=== PATIENT | female | born 1940 | race Caucasian/White ===

== ENCOUNTER 2024-03-15 17:43 | Emergency (ER) | payer MEDICARE, BC ==
[~2024-03-15] VITALS: Ht 165.1 cm; Wt 70.3 kg
--- NOTE | 2024-03-15 18:02 | NUR ---
ABDOMINAL DISCOMFORT AND NAUSEA X 1 WEEK
[2024-03-15 18:13] LABS: BASOPHILS % (AUTO) 0.8 % (0.0-2.0); EOSINOPHILS # (AUTO) 0.2 K/uL (0.0-0.7); EOSINOPHILS % (AUTO) 4.4 % (0.0-6.0); HEMATOCRIT 39 % (33-45); LYMPHOCYTES # (AUTO) 1.4 K/uL (0.8-4.8); LYMPHOCYTES % (AUTO) 30.3 % (20.0-44.0); MEAN CORPUSCULAR HEMOGLOBIN 30 PG (26.0-33.0); MEAN CORPUSCULAR HGB CONC 33 g/dl (31.0-36.0); MEAN CORPUSCULAR VOLUME 91 fL (82-100); MONOCYTES # (AUTO) 0.4 K/uL (0.1-1.30); MONOCYTES % (AUTO) 8.2 % (2.0-12.0); NEUTROPHILS # (AUTO) 2.6 K/uL (1.8-8.9); NEUTROPHILS % (AUTO) 56.3 % (43.0-81.0); PLATELET COUNT (AUTO) 215 K/uL (150-450); RED BLOOD CELL COUNT(AUTO) 4.26 MIL/uL (4.0-5.2); RED CELL DISTRIBUTION WIDTH 14.2 % (11.5-15.0); WHITE BLOOD COUNT (AUTO) 4.6 K/uL (4.3-11.0)
[2024-03-15 18:19] LABS: CALCIUM, SERUM 10.1 mg/dL (8.5-10.1); CARBON DIOXIDE 28 mmol/L (21-32); CHLORIDE 101 mmol/L (98-107); CREATININE 0.7 mg/dL (0.6-1.3); GLUCOSE 92 mg/dL (74-106); POTASSIUM 3.8 mmol/L (3.5-5.1); SODIUM SERUM 138 mmol/L (136-145); UREA NITROGEN, BLOOD 23 mg/dL (7-18)
[2024-03-15 18:24] LABS: ALANINE AMINOTRANSFERASE 23 U/L (12-78); ALBUMIN 3.7 g/dL (3.4-5.0); ALKALINE PHOSPHATASE 65 U/L (46-116); ASPARTATE AMINOTRANSFERASE 19 U/L (15-37); BILIRUBIN,DIRECT 0.1 mg/dL (0.0-0.2); BILIRUBIN,TOTAL 0.3 mg/dL (0.2-1.0); LIPASE 78 U/L (16-77); TOTAL PROTEIN, SERUM 7.7 g/dL (6.4-8.2)
[2024-03-15] MEDS ORDERED: IOHEXOL-300 100 ML VIAL IV ONE (18:52)
[2024-03-15] MEDS ORDERED: IV NS 0.9% 250 ML IV ONE (18:52)
--- NOTE | 2024-03-15 19:53 | NUR ---
Urine specimen collected sent to lab
--- NOTE | 2024-03-15 20:01 | NUR ---
Brother (rachel left, provided contact number [phone]
[2024-03-15 20:38] VITALS: BP 165/79; TEMP 98; O2SAT 99
--- NOTE | 2024-03-15 20:38 | NUR ---
Patient discharged to home in stable condition. Written and verbal after care instructions given. Patient verbalizes understanding of instruction. IV removed. Catheter intact and site benign. Pressure and 4x4 applied to site. No bleeding noted.
[2024-03-15 21:00] LABS: APPEARANCE,URINE CLEAR (CLEAR); BILIRUBIN,URINE NEGATIVE (NEGATIVE); BLOOD, URINE NEGATIVE Ery/uL (NEGATIVE); COLOR,URINE YELLOW (YELLOW); KETONES,URINE NEGATIVE (NEGATIVE); LEUKOCYTE ESTERASE ,URINE NEGATIVE (NEGATIVE); NITRITE, URINE NEGATIVE (NEGATIVE); PROTEIN,URINE NEGATIVE (NEGATIVE); UGLUCOSE NEGATIVE (NEGATIVE); UROBILINOGEN,URINE 0.2 EU/dL (0.2)
== END 2024-03-15 20:38 | disposition home or self-care (01) ==
LOC: ER 17:43
DX: K59.00 Constipation, unspecified (principal); R10.9 Unspecified abdominal pain; R11.0 Nausea; Z87.09 Personal history of other diseases of the respiratory system; Z88.2 Allergy status to sulfonamides; Z60.2 Problems related to living alone
CPT/HCPCS: 99285; 74177; 85025; 80048; 83690; 80076; 81003; 36415; J7050; Q9967; 74160-TC

== ENCOUNTER 2024-08-18 12:31 | Emergency (ER) | payer MEDICARE, BC ==
[~2024-08-18] VITALS: Ht 165.1 cm; Wt 59.0 kg
[2024-08-18] MEDS ORDERED: LORAZEPAM 0.5 MG TABLET ONE (13:20)
[2024-08-18] MEDS: LORAZEPAM 1 MG TABLET PO ONE (13:22)
[2024-08-18 13:44] LABS: BASOPHILS % (AUTO) 0.8 % (0.0-2.0); EOSINOPHILS # (AUTO) 0.1 K/uL (0.0-0.7); HEMATOCRIT 36 % (33-45); HEMOGLOBIN 12.9 g/dL (11.5-14.8); LYMPHOCYTES # (AUTO) 1.1 K/uL (0.8-4.8); LYMPHOCYTES % (AUTO) 23.3 % (20.0-44.0); MEAN CORPUSCULAR HEMOGLOBIN 33 PG (26.0-33.0); MEAN CORPUSCULAR HGB CONC 36 g/dl (31.0-36.0); MEAN CORPUSCULAR VOLUME 91 fL (82-100); MONOCYTES # (AUTO) 0.5 K/uL (0.1-1.30); MONOCYTES % (AUTO) 10.1 % (2.0-12.0); NEUTROPHILS # (AUTO) 3.1 K/uL (1.8-8.9); NEUTROPHILS % (AUTO) 63.8 % (43.0-81.0); PLATELET COUNT (AUTO) 198 K/uL (150-450); WHITE BLOOD COUNT (AUTO) 4.8 K/uL (4.3-11.0)
[2024-08-18 13:53] LABS: CALCIUM, SERUM 9.1 mg/dL (8.5-10.1); CARBON DIOXIDE 30 mmol/L (21-32); CHLORIDE 102 mmol/L (98-107); CREATININE 1.1 mg/dL (0.6-1.3); GLUCOSE 99 mg/dL (74-106); POTASSIUM 3.8 mmol/L (3.5-5.1); SODIUM SERUM 137 mmol/L (136-145); UREA NITROGEN, BLOOD 27 mg/dL (7-18)
[2024-08-18 14:56] VITALS: BP 176/78; TEMP 98.1; O2SAT 99
== END 2024-08-18 14:57 | disposition home or self-care (01) ==
LOC: ER 12:36
DX: R42 Dizziness and giddiness (principal); R53.83 Other fatigue; R03.0 Elevated blood-pressure reading, without diagnosis of hypertension; F41.1 Generalized anxiety disorder; J84.10 Pulmonary fibrosis, unspecified; Z88.2 Allergy status to sulfonamides
CPT/HCPCS: 36415; 71045-TC; 80048-TC; 84484-TC; 85025-TC

== ENCOUNTER 2024-10-23 10:47 | Inpatient (IN) | payer MEDICARE, BC ==
[~2024-10-23] VITALS: Ht 165.1 cm; Wt 58.5 kg
[2024-10-23 11:46] LABS: BASOPHILS % (AUTO) 0.3 % (0.0-2.0); EOSINOPHILS % (AUTO) 0.1 % (0.0-6.0); HEMATOCRIT 40 % (33-45); HEMOGLOBIN 13.9 g/dL (11.5-14.8); LYMPHOCYTES # (AUTO) 0.4 K/uL (0.8-4.8); MEAN CORPUSCULAR HEMOGLOBIN 31 PG (26.0-33.0); MEAN CORPUSCULAR HGB CONC 35 g/dl (31.0-36.0); MEAN CORPUSCULAR VOLUME 87 fL (82-100); MONOCYTES # (AUTO) 0.9 K/uL (0.1-1.30); MONOCYTES % (AUTO) 22.3 % (2.0-12.0); NEUTROPHILS # (AUTO) 2.9 K/uL (1.8-8.9); NEUTROPHILS % (AUTO) 68.3 % (43.0-81.0); PLATELET COUNT (AUTO) 217 K/uL (150-450); RED BLOOD CELL COUNT(AUTO) 4.55 MIL/uL (4.0-5.2); WHITE BLOOD COUNT (AUTO) 4.2 K/uL (4.3-11.0)
[2024-10-23 11:50] LABS: CALCIUM, SERUM 9.8 mg/dL (8.5-10.1); CARBON DIOXIDE 27 mmol/L (21-32); CHLORIDE 85 mmol/L (98-107); CREATININE 1.2 mg/dL (0.6-1.3); GLUCOSE 104 mg/dL (74-106); SODIUM SERUM 124 mmol/L (136-145); UREA NITROGEN, BLOOD 20 mg/dL (7-18)
[2024-10-23 11:57] LABS: ALANINE AMINOTRANSFERASE 126 U/L (12-78); ALBUMIN 3.7 g/dL (3.4-5.0); ALKALINE PHOSPHATASE 65 U/L (46-116); ASPARTATE AMINOTRANSFERASE 300 U/L (15-37); BILIRUBIN,DIRECT 0.2 mg/dL (0.0-0.2); BILIRUBIN,TOTAL 0.7 mg/dL (0.2-1.0); TOTAL PROTEIN, SERUM 8.3 g/dL (6.4-8.2)
[2024-10-23] MEDS ORDERED: ASPIRIN 325 MG TABLET ONE (12:24)
[2024-10-23 12:36] LABS: LACTIC ACID 2.2 mmol/L (0.4-2.0)
[2024-10-23] MEDS: POTASSIUM CL. PREMIX PERIPHER. 50 ML IV SCH (12:39)
[2024-10-23] MEDS: ASPIRIN 325 MG TABLET PO ONE (12:39)
[2024-10-23] MEDS: POTASSIUM CHLORIDE 20 MEQ POWDER PACKET PO ONE (12:40)
[2024-10-23 12:41] LABS: INR 1.14 (0.91-1.10); PARTIAL THROMBOPLASTIN TIME 40.2 SEC (24.3-34.3)
[2024-10-23 13:03] LABS: APPEARANCE,URINE CLEAR (CLEAR); BILIRUBIN,URINE NEGATIVE (NEGATIVE); BLOOD, URINE 3+ Ery/uL (NEGATIVE); COLOR,URINE YELLOW (YELLOW); KETONES,URINE NEGATIVE (NEGATIVE); LEUKOCYTE ESTERASE ,URINE NEGATIVE (NEGATIVE); NITRITE, URINE NEGATIVE (NEGATIVE); PROTEIN,URINE 2+ mg/dl (NEGATIVE); UGLUCOSE NEGATIVE (NEGATIVE); UROBILINOGEN,URINE 0.2 EU/dL (0.2)
[2024-10-23] MEDS ORDERED: LOSA50TA39 PO (13:14)
[2024-10-23 13:18] LABS: ADD URINE CULTURE YES; WBC,URINE 0-2 /HPF (0-3)
[2024-10-23 13:19] LABS: BACTERIA,URINE 3+ /HPF (None Seen)
[2024-10-23 13:36] LABS: ANISOCYTOSIS 1+; LYMPHOCYTES % (MANUAL) 13 % (16-48); MONOCYTES % (MANUAL) 18 % (0-11.0); NEUTROPHILS % (MANUAL) 69 (42-76); PLATELET ESTIMATE ADEQUATE
[2024-10-23] MEDS ORDERED: POTASSIUM CL. PREMIX PERIPHER. 50 ML ONE (14:42)
[2024-10-23] MEDS ORDERED: ACETAMINOPHEN 325 MG TABLET PO PRN (15:00)
[2024-10-23] MEDS ORDERED: MAGNESIUM HYDROXIDE 30 ML UDC PO PRN (15:00)
[2024-10-23] MEDS ORDERED: ZOLPIDEM TARTRATE 5 MG TABLET PO PRN (15:00)
[2024-10-23] MEDS ORDERED: ONDANSETRON HCL/PF 4 MG/2 ML VIAL IVP PRN (15:00)
[2024-10-23] MEDS ORDERED: MAG HYDROX/AL HYDROX/SIMETH 30 ML UDC PO PRN (15:00)
[2024-10-23] MEDS ORDERED: Z GUARD REMEDY 4 OZ OINT TP PRN (15:00)
[2024-10-23] MEDS: CEFTRIAXONE 1 G in IV D5W 50 ML IV SCH (16:16)
[2024-10-23] MEDS: ENOXAPARIN SODIUM 30 MG/0.3 ML DISP.SYRIN SQ SCH (16:18)
[2024-10-23] MEDS: IV 1/2NS 1000 ML 1,000 ML IV PRN (18:05)
[2024-10-23 20:00] VITALS: BP 135/58; TEMP 98.4; O2SAT 94
[2024-10-23] MEDS: DOXYCYCLINE HYCLATE (100 MG) 100 MG TABLET PO SCH (21:31)
[2024-10-24] VITALS: BP 140/72; TEMP 98.1; O2SAT 94
[2024-10-24 04:00] VITALS: BP 148/74; TEMP 98.4; O2SAT 94
[2024-10-24 08:00] VITALS: BP 159/83; TEMP 98.2; O2SAT 98
[2024-10-24 08:20] LABS: BASOPHILS % (AUTO) 0.8 % (0.0-2.0); EOSINOPHILS % (AUTO) 0.8 % (0.0-6.0); HEMATOCRIT 37 % (33-45); HEMOGLOBIN 12.9 g/dL (11.5-14.8); LYMPHOCYTES # (AUTO) 0.8 K/uL (0.8-4.8); LYMPHOCYTES % (AUTO) 22.5 % (20.0-44.0); MEAN CORPUSCULAR HEMOGLOBIN 31 PG (26.0-33.0); MEAN CORPUSCULAR HGB CONC 35 g/dl (31.0-36.0); MEAN CORPUSCULAR VOLUME 88 fL (82-100); MONOCYTES # (AUTO) 0.7 K/uL (0.1-1.30); MONOCYTES % (AUTO) 20.1 % (2.0-12.0); NEUTROPHILS % (AUTO) 55.8 % (43.0-81.0); PLATELET COUNT (AUTO) 209 K/uL (150-450); RED CELL DISTRIBUTION WIDTH 12.7 % (11.5-15.0); WHITE BLOOD COUNT (AUTO) 3.6 K/uL (4.3-11.0)
[2024-10-24 08:24] LABS: CALCIUM, SERUM 8.7 mg/dL (8.5-10.1); CREATININE 0.9 mg/dL (0.6-1.3); MAGNESIUM 2.1 mg/dL (1.8-2.4); PHOSPHORUS 2.7 mg/dL (2.5-4.9); POTASSIUM 3.1 mmol/L (3.5-5.1)
[2024-10-24 08:36] LABS: THYROID STIMULATING HORMONE 1.01 uIU/mL (0.358-3.74)
[2024-10-24] MEDS: PANTOPRAZOLE 40 MG TABLET.DR PO SCH (10:13)
[2024-10-24] MEDS: POTASSIUM CHLORIDE 20 MEQ TAB.PRT.SR PO SCH (11:00)
[2024-10-24 12:00] VITALS: BP 155/71; TEMP 98.6; O2SAT 98
[2024-10-24 13:34] LABS: LYMPHOCYTES % (MANUAL) 27 % (16-48); MONOCYTES % (MANUAL) 20 % (0-11.0); NEUTROPHILS % (MANUAL) 53 (42-76)
[2024-10-24 13:35] LABS: ANISOCYTOSIS 1+; PLATELET ESTIMATE ADEQUATE
[2024-10-24] MEDS: HYDROCODONE BIT/HOMATROPINE 5 ML UDC PO PRN (14:43)
[2024-10-24 16:00] VITALS: BP 154/74; TEMP 98.4; O2SAT 95
[2024-10-25 07:40] LABS: CALCIUM, SERUM 8.7 mg/dL (8.5-10.1); CREATININE 0.8 mg/dL (0.6-1.3)
[2024-10-25 08:00] VITALS: BP 133/60; TEMP 98.4; O2SAT 95
[2024-10-25 12:00] VITALS: BP 123/60; TEMP 98.4; O2SAT 95
[2024-10-25] MEDS ORDERED: NIRM1TAB8 PO (13:05)
[2024-10-25] MEDS ORDERED: DOXY100T2 PO (13:05)
== END 2024-10-25 16:31 | disposition home or self-care (01) | DRG 177 ==
LOC: ER 10:57 → TELE1 14:21
DX: U07.1 COVID-19 (principal); I21.A1 Myocardial infarction type 2; J15.9 Unspecified bacterial pneumonia; E87.1 Hypo-osmolality and hyponatremia; E86.1 Hypovolemia; E87.6 Hypokalemia; I10 Essential (primary) hypertension; J84.10 Pulmonary fibrosis, unspecified; Z88.2 Allergy status to sulfonamides; R53.1 Weakness
CPT/HCPCS: 36415; 71045-TC; 80048-TC; 80061-TC; 80076-TC; 81001; 82533; 83605-TC; 83735-TC; 84100-TC; 84439-TC; 84443-TC; 84484-TC; 84550-TC; 85025-TC; 85730-TC; 86140-TC; 87040-TC; 87086-TC; 93307-TC; A4223; G0378; J0696; J1650; J3480; J3490; J7040; J7050; J7060